=== PATIENT | female | born 1990 | race Caucasian/White ===

== ENCOUNTER 2020-10-17 07:58 | Emergency (ER) | payer BC ==
[~2020-10-17] VITALS: Ht 152.4 cm; Wt 97.0 kg
[2020-10-17] MEDS ORDERED: SODIUM CHLORIDE FLUSH 10ML SYR IVF ONE (08:30)
[2020-10-17] MEDS ORDERED: DIPHENHYDRAMINE 50 MG/ML, 1ML IVPush ONE (08:30)
[2020-10-17] MEDS ORDERED: METOCLOPRAMIDE 5 MG/ML, 2ML IVPush ONE (08:30)
[2020-10-17] MEDS ORDERED: SODIUM CHLORIDE 0.9% 1,000ML IVBOLUS ONE (08:30)
[2020-10-17] MEDS ORDERED: MORPHINE SULFATE 4 MG/ML, 1ML IVPush PRN (08:30)
[2020-10-17 08:54] LABS: BASOPHILS % (AUTO) 0 % (0-1); EOSINOPHILS % (AUTO) 0 % (1-7); LYMPHOCYTES % (AUTO) 11 % (22-44); MEAN CORPUSCULAR HEMOGLOBIN 32.2 pg (27.0-34.8); MEAN CORPUSCULAR HGB CONC 35.2 g/dL (32.4-35.8); MEAN PLATELET VOLUME 7.1 fL (7.4-10.4); MONOCYTES % (AUTO) 4 % (2-9); NEUTROPHILS % (AUTO) 84 % (42-75); PLATELET COUNT 408 x10^3/uL (130-400); RED BLOOD COUNT 4.17 x10^6/uL (3.82-5.3)
[2020-10-17 08:58] LABS: ALANINE AMINOTRANSFERASE 35 U/L (12-78); ALBUMIN 3.9 g/dL (3.4-5.0); ANION GAP 15 mmol/L (5-15); CALCIUM 9.3 mg/dL (8.5-10.1); CHLORIDE 108 mmol/L (98-107); CREATININE 0.98 mg/dL (0.55-1.02)
[2020-10-17 09:00] LABS: ALKALINE PHOSPHATASE 70 U/L (45-117); BILIRUBIN,TOTAL 0.5 mg/dL (0.2-1.0); TOTAL PROTEIN 8.3 g/dL (6.4-8.2)
--- NOTE | 2020-10-17 09:00 | NUR ---
pt presents to ED with c/o n/v/d x 12 hrs, states diarrhea now resolved. pt states she drank a whole bottle of wine and had some chicken before sx onset. pt is a&o, resps even and unlabored. no vomiting so far in dept. pt instructed to provide clean catch ua, up to bathroom with steady gait at this time.
[2020-10-17] MEDS ORDERED: METOCLOPRAMIDE 5 MG/ML, 2ML ONE (09:11)
[2020-10-17] MEDS ORDERED: MORPHINE SULFATE 4 MG/ML, 1ML ONE (09:12)
--- NOTE | 2020-10-17 09:47 | NUR ---
pt medicated per emar for generalized abd pain 09/24, tolerated well. bp and spo2 monitors in place. pt reporting pain and nausea already resolving. boyfriend at bedside.
[2020-10-17 09:58] LABS: MICROSCOPIC INDICATED
--- NOTE | 2020-10-17 10:00 | NUR ---
pt sleeping, rresps even and unlabored, oxygen applied at 2L/min via NC. awaiting ua results and dispo.
[2020-10-17 11:11] VITALS: BP 117/54
== END 2020-10-17 11:14 | disposition home or self-care (01) ==
LOC: ED 11:05
DX: K29.00 Acute gastritis without bleeding (principal); R11.2 Nausea with vomiting, unspecified
CPT/HCPCS: 36415; 80053; 81001; 83690; 85025; 87086; 96361; 96374; 96375; 99284; J2270; J2765; J7030